=== PATIENT | female | born 1990 | race African-American/Black ===

== ENCOUNTER 2020-10-21 16:59 | Emergency (ER) | payer OTHER ==
[~2020-10-21] VITALS: Ht 167.6 cm; Wt 82.2 kg
[2020-10-21] MEDS ORDERED: DEXAMETHASONE 4 MG/ML, 1ML PO ONE (18:00)
--- NOTE | 2020-10-21 21:19 | NUR ---
PT TO ROOM FROM LOBBY
[2020-10-21] MEDS ORDERED: DEXAMETHASONE 4 MG/ML, 5ML ONE (21:27)
[2020-10-21] MEDS ORDERED: ACETAMINOPHEN 500 MG TABLET ONE (21:28)
[2020-10-21] MEDS ORDERED: ACETAMINOPHEN 500 MG TABLET PO ONE (21:30)
[2020-10-21 21:33] VITALS: BP 127/74
== END 2020-10-21 22:26 | disposition home or self-care (01) ==
LOC: ED 22:20
DX: M79.10 Myalgia, unspecified site (principal); Z20.822 Contact with and (suspected) exposure to COVID-19; R05 Cough; J02.9 Acute pharyngitis, unspecified; R50.9 Fever, unspecified; R51.9 Headache, unspecified
CPT/HCPCS: 71045; 99284; J1100; U0003; U0005

== ENCOUNTER 2020-10-30 18:29 | Emergency (ER) | payer OTHER ==
[~2020-10-30] VITALS: Ht 170.2 cm; Wt 80.0 kg
[2020-10-30 19:12] VITALS: BP 121/67
== END 2020-10-30 20:23 | disposition home or self-care (01) ==
LOC: ED 18:35
DX: Z20.822 Contact with and (suspected) exposure to COVID-19 (principal); J06.9 Acute upper respiratory infection, unspecified
CPT/HCPCS: 99283; U0003; U0005